=== PATIENT | female | born 1970 | race Caucasian/White ===

== ENCOUNTER → 2017-09-09 | Outpatient (CLI) | payer OTHER | LOC: BMCIMAGING 09:44 | PROVIDERS: ATTEND Emergency Medicine | DX: R05 Cough (principal); S22.31XD Fracture of one rib, right side, subsequent encounter for fracture with routine healing; S22.32XD Fracture of one rib, left side, subsequent encounter for fracture with routine healing ==

== ENCOUNTER → 2019-01-05 | Outpatient (CLI) | payer OTHER | LOC: FIMAGING 08:53 ==